=== PATIENT | male | born 1985 | race Caucasian/White ===

== ENCOUNTER 2016-07-31 15:02 | Emergency (ER) | payer OTHER ==
[~2016-07-31] VITALS: Ht 188 cm; Wt 113.4 kg
[~2016-07-31 15:02] MED LIST: CEPH250S38 PO; HYDR-3720 PO; IBP800T PO
[2016-07-31 15:55] VITALS: BP 136/74
[2016-07-31] MEDS ORDERED: FLUO40CA12 PO (16:05)
--- NOTE | 2016-07-31 17:49 | Diagnostic Imaging Report ---
INDICATION: Rollerskating abrasion to medial anterior side of left knee. FINDINGS: 3 views show joint space to be well preserved on nonweightbearing images. Articulating surfaces are smooth. Patella is in good alignment with the trochlea. There are no fractures. IMPRESSION: Normal left knee. Dictated by: Dictated on workstation # [id number]
== END 2016-07-31 15:55 | disposition home or self-care (01) ==
LOC: ER 15:02 → EDUNIT# 15:02 → ER 15:55
DX: S83.095A Other dislocation of left patella, initial encounter (principal); S80.212A Abrasion, left knee, initial encounter; Y92.331 Roller skating rink as the place of occurrence of the external cause; Y93.51 Activity, roller skating (inline) and skateboarding; Y99.8 Other external cause status
CPT/HCPCS: 73562

== ENCOUNTER 2016-11-16 20:21 | Emergency (ER) | payer OTHER ==
[~2016-11-16] VITALS: Ht 188 cm; Wt 122.5 kg
[~2016-11-16 20:21] MED LIST changes: +FLUO40CA12 PO
[2016-11-16] MEDS ORDERED: KETOROLAC 60 MG/2 ML VIAL IM ONE (20:30)
[2016-11-16] MEDS ORDERED: ORPHENADRINE 60 MG/2 ML (NORFLEX) AMP IM ONE (20:30)
[2016-11-16] MEDS ORDERED: CYCL5TAB PO (20:34)
[2016-11-16] MEDS ORDERED: PRD20T PO (20:34)
--- NOTE | 2016-11-16 20:34 | ED Back Pain ---
General Stated Complaint: BACK PAIN Source of Information: Patient Exam Limitations: No Limitations History of Present Illness Time Seen by Provider: 20:31 Initial Comments To ER with left low back pain that radiates down the left leg. Denies any loss of bowel or bladder control, saddle anesthesia, fevers or chills. No history of back pain. This began this morning about 530 a.m. after twisting mechanism and he felt a popping sensation. He's never had this before. Location: Lumbar Spine Timing/Duration: 12-24 Hours Severity: Moderate Associated Symptoms: muscle spasms, tingling in legs/feet Allergies and Home Medications Allergies Coded Allergies: Penicillins (Unverified Allergy, Mild, 01/03/09) Home Medications Fluoxetine HCl 40 Mg Capsule, 40 MG PO DAILY, (Reported) Constitutional: see HPI EENTM: see HPI Respiratory: no symptoms reported Cardiovascular: no symptoms reported Genitourinary: no symptoms reported Musculoskeletal: see HPI, back pain Skin: no symptoms reported Psychiatric/Neurological: No Symptoms Reported Past [id number]-Mkuhbe Hx Patient Social History Recent Foreign Travel: No Contact w/Someone Who Travel: No Recent Hopitalizations: No Immunizations Up To Date Tetanus Booster (TDap): Less than 5yrs PED Vaccines UTD: Yes Seasonal Allergies Seasonal Allergies: No Surgeries HX Surgeries: No Respiratory Hx Respiratory Disorders: No Cardiovascular Hx Cardiac Disorders: No Neurological Hx Neurological Disorders: No Reproductive System Hx Reproductive Disorders: No Genitourinary Hx Genitourinary Disorders: No Gastrointestinal Hx Gastrointestinal Disorders: No Musculoskeletal Hx Musculoskeletal Disorders: No Endocrine Hx Endocrine Disorders: No HEENT HX ENT Disorders: No Cancer Hx Cancer: No Psychosocial Hx Psychiatric Problems: No Blood Transfusions Hx Blood Disorders: No Physical Exam Vital Signs Capillary Refill : General Appearance: No Apparent Distress, WD/WN HEENT: PERRL/EOMI, TMs Normal Neck: Full Range of Motion, Normal Inspection Respiratory: Normal Breath Sounds, No Accessory Muscle Use, No Respiratory Distress Gastrointestinal: Normal Bowel Sounds, Non Tender, Soft Back: Normal Inspection, No Vertebral Tenderness Extremity: Normal Capillary Refill, Normal Inspection Neurologic/Psychiatric: Alert, Oriented x3 Skin: Normal Color, Warm/Dry Comments Ambulatory to room 6 Progress/Results/Core Measures Results/Orders My Orders Orders - JOSAFAT MARTIN APRN Ketorolac Injection (Toradol Injection) (11/16/16 20:30) Orphenadrine Injection (Norflex Injectio (11/16/16 20:30) Departure Impression Impression: Primary Impression: Lumbar radiculopathy, acute Disposition: 01 HOME, SELF-CARE Condition: Stable Departure-Patient Inst. Decision time for Depature: 20:32 Referrals: REHAN SAUCEDA DO (PCP/Family) Primary Care Physician Patient Instructions: Radiculopathy Add. Discharge Instructions: 1. Return to ER for any concerns such as fevers, difficulty with urination or having bowel movements, fevers or chills or loss of sensation to your genitals as these are considered "red flags" in regards to back pain. In the interim take steroids and muscle relaxers as directed, do not lift over 5 pounds for one week. If the pain persists beyond a few weeks she should follow-up with Dr. SAUCEDA to discuss imaging of your low back. Scripts Cyclobenzaprine HCl (Cyclobenzaprine HCl) 5 Mg Tablet 5 MG PO TID Y for PAIN-MODERATE, #20 TAB Prov: JOSAFAT MARTIN APRN 11/16/16 Prednisone (Prednisone) 20 Mg Tab 40 MG PO DAILY, #8 TAB Prov: JOSAFAT MARTIN APRN 11/16/16 Work/School Note: Work Release Form Date Seen in the Emergency Department: November 16, 2016 Return to Work: November 17, 2016 Other Restrictions Listed Below: Do not lift greater than 5 pounds for 7 days. JOSAFAT MARTIN APRN November 16, 2016 20:34
[2016-11-16 21:15] VITALS: BP 137/103
[2016-11-16] MEDS ORDERED: HYDROcodone/APAP 5 MG/325 MG (LORTAB) TAB PO ONE (21:15)
== END 2016-11-16 21:15 | disposition home or self-care (01) ==
LOC: EDUNIT# 20:21 → ER 20:23
DX: M54.16 Radiculopathy, lumbar region (principal)
CPT/HCPCS: 96372; 99281

== ENCOUNTER → 2016-11-29 | Outpatient (CLI) | payer OTHER ==
[~2016-11-29] MED LIST changes: +CYCL5TAB PO; +PRD20T PO
--- NOTE | 2016-11-29 15:41 | Diagnostic Imaging Report ---
INDICATION: Lifting injury two weeks ago. FINDINGS: Three views show good alignment of the vertebral bodies. Body heights and disc spaces are well maintained. Pedicles are intact. SI joints are symmetrical. No fractures are demonstrated. IMPRESSION: Normal lumbar spine. Dictated by: Dictated on workstation # [id number]
== END ==
LOC: RAD 14:05
PROVIDERS: ATTEND Family Medicine
DX: M54.16 Radiculopathy, lumbar region (principal)
CPT/HCPCS: 72100

== ENCOUNTER 2017-03-10 12:41 | Outpatient (RCR) | payer OTHER | END 2017-03-15 | disposition home or self-care (01) | PROVIDERS: ATTEND Family Medicine | DX: M54.16 Radiculopathy, lumbar region (principal) ==

== ENCOUNTER 2017-03-18 08:30 | Outpatient (RCR) | payer OTHER | END 2017-04-06 08:51 | disposition home or self-care (01) | PROVIDERS: ATTEND Family Medicine | DX: M54.16 Radiculopathy, lumbar region (principal) ==

== ENCOUNTER → 2020-06-10 | Outpatient (CLI) | payer OTHER | LOC: LABNPT 06:58 | PROVIDERS: ATTEND Family Medicine | DX: Z01.89 Encounter for other specified special examinations (principal); Z53.8 Procedure and treatment not carried out for other reasons ==

== ENCOUNTER → 2020-06-25 | Outpatient (CLI) | payer OTHER | LOC: LABNPT 08:44 | PROVIDERS: ATTEND Family Medicine | DX: Z20.828 Contact with and (suspected) exposure to other viral communicable diseases (principal) | CPT/HCPCS: 87635 ==

== ENCOUNTER → 2020-06-27 | Outpatient (CLI) | payer OTHER | LOC: SLEEP 19:24 | PROVIDERS: ATTEND Family Medicine | DX: G47.33 Obstructive sleep apnea (adult) (pediatric) (principal); G47.10 Hypersomnia, unspecified; I10 Essential (primary) hypertension; Z20.828 Contact with and (suspected) exposure to other viral communicable diseases | CPT/HCPCS: 95811 ==